=== PATIENT | male | born 1995 | race Caucasian/White ===

== ENCOUNTER 2019-05-28 17:59 | Emergency (ER) | payer BC ==
[~2019-05-28] VITALS: Ht 175.3 cm; Wt 95.3 kg
[2019-05-28] MEDS ORDERED: HYDROcodone/APAP 5/325MG 1 TAB TABLET PO ONE (18:30)
[2019-05-28] MEDS ORDERED: DIPHTH,PERTUSS(ACELL),TET TOX 0.5 ML DISP.SYRIN. VAX IM ONE (18:45)
[2019-05-28] MEDS ORDERED: PIPERACILLIN/TAZOBACTAM 3.375 GM in IV NORMAL SALINE 50ML 50 ML IV ONE (18:45)
[2019-05-28] MEDS ORDERED: HYDR-2765 PO (18:47)
[2019-05-28] MEDS ORDERED: CEPH500T PO (18:47)
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
[2019-05-28] MEDS ORDERED: ONDANSETRON PF 4 MG/2 ML VIAL. IV ONE (19:00)
[2019-05-28] MEDS ORDERED: MORPHINE SULFATE 4 MG/ML VIAL. IV/SQ ONE (19:00)
[2019-05-28 20:10] VITALS: BP 142/82
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
== END 2019-05-28 20:17 | disposition home or self-care (01) ==
LOC: ER 17:59
DX: S92.424B Nondisplaced fracture of distal phalanx of right great toe, initial encounter for open fracture (principal); W34.09XA Accidental discharge from other specified firearms, initial encounter; Y93.89 Activity, other specified; Y92.89 Other specified places as the place of occurrence of the external cause; Y99.8 Other external cause status
CPT/HCPCS: 73630; 90471; 90715; 96365; 96375; 99285; J2270; J2405; J2543